=== PATIENT | male | born 1945 | race Caucasian/White ===

== ENCOUNTER 2021-04-25 11:08 | Inpatient (IN) | payer MEDICAID, MEDICARE ==
[~2021-04-25] VITALS: Ht 172.7 cm; Wt 81.7 kg
[2021-04-25 13:25] VITALS: BP 177/82
[2021-04-25] MEDS ORDERED: ACETAMINOPHEN TAB 650MG DOSE (2X325MG) PO PRN (14:15)
[2021-04-25] MEDS ORDERED: MOM 30ML SUSPENSION UDC PO PRN (14:15)
[2021-04-25] MEDS ORDERED: MAALOX 30 ML SUSP *UDC PO PRN (14:15)
[2021-04-25 14:56] LABS: BASO # 0.1 10^3/uL (0.0-0.2); BASO % 0.5 % (0.0-1.0); EOS # 0.1 10^3/uL (0.0-0.5); EOS % 0.6 % (0.0-3.0); HEMATOCRIT 40.5 % (42.0-52.0); LYMPH # 1.2 10^3/uL (1.5-5.0); MEAN CORPUSCULAR HEMOGLOBIN 29.5 pg (27.0-33.0); MEAN CORPUSCULAR HGB CONC 32.1 g/dl (32.0-36.5); MONO # 1.2 10^3/uL (0.0-0.8); NEUTROPHILS # 7.6 10^3/uL (1.5-8.5); NEUTROPHILS % 74.6 % (36.0-66.0); PLATELET COUNT, AUTOMATED 165 10^3/uL (150-450); WHITE BLOOD COUNT 10.2 10^3/uL (4.0-10.0)
[2021-04-25] MEDS ORDERED: METO50TA7 PO (14:58)
[2021-04-25] MEDS ORDERED: PANT40TA29 PO (14:58)
[2021-04-25] MEDS ORDERED: LOVA20TA2 PO (14:58)
[2021-04-25] MEDS ORDERED: DOXA1TAB40 PO (14:58)
[2021-04-25] MEDS ORDERED: CARB25TA9 PO (14:58)
[2021-04-25] MEDS ORDERED: ALBU8.5H INH (14:58)
[2021-04-25 15:13] LABS: HEMOGLOBIN A1c 6.2 %
[2021-04-25] MEDS ORDERED: METF500T13 PO (15:29)
[2021-04-25] MEDS ORDERED: CLOP75TA2 PO (15:29)
[2021-04-25] MEDS ORDERED: HOME MED LIST COMPLETE! XX SCH (15:35)
[2021-04-25 15:55] LABS: ALBUMIN 3.4 GM/DL (3.2-5.2); ALT/SGPT 26 U/L (12-78); BILIRUBIN,TOTAL 0.7 MG/DL (0.2-1.0); BLOOD UREA NITROGEN 15 MG/DL (7-18); CALCIUM LEVEL 8.9 MG/DL (8.8-10.2); CARBON DIOXIDE LEVEL 29 MEQ/L (21-32); CHLORIDE LEVEL 104 MEQ/L (98-107); CHOLESTEROL LEVEL 126 MG/DL (<200); CHOLESTEROL RISK RATIO 2.172 (<5); CREATININE FOR GFR 0.84 MG/DL (0.70-1.30); FREE T4 1.05 NG/DL (0.76-1.46); GLOMERULAR FILTRATION RATE > 60.0 (>42); GLUCOSE, FASTING 119 MG/DL (70-100); HDL CHOLESTEROL 58 MG/DL (>40); LDL CHOLESTEROL 55 MG/DL (<100); MAGNESIUM LEVEL 1.8 MG/DL (1.8-2.4); NON-HDL-C 68 MG/DL; POTASSIUM SERUM 3.8 MEQ/L (3.5-5.1); SODIUM LEVEL 139 MEQ/L (136-145); THYROID STIMULATING HORMONE 0.903 uIU/ML (0.358-3.740); TOTAL PROTEIN 6.2 GM/DL (6.4-8.2); TRIGLYCERIDES LEVEL 64 MG/DL (<150)
[2021-04-25] MEDS ORDERED: GLUCOSE 4GM CHEW TABLET PO PRN (16:10)
[2021-04-25] MEDS ORDERED: ALBUTEROL 90 MCG/ACT 8GM HFA INHALER INH PRN (16:10)
[2021-04-25] MEDS ORDERED: GLUCAGON INJ 1MG VIAL SC PRN (16:10)
[2021-04-25] MEDS ORDERED: DEXTROSE 50% 50 ML SYRINGE IV PRN (16:10)
[2021-04-25 16:17] VITALS: BP 151/69
[2021-04-25] MEDS ORDERED: LORazepam 2 MG/ML VIAL IV STA (16:27)
[2021-04-25] MEDS: D5W/0.9% SODIUM CHLORIDE 1,000 ML IV SCH (16:48)
[2021-04-25] MEDS ORDERED: PILL CUTTER 1 EACH XX PRN (17:00)
[2021-04-25] MEDS: PANTOPRAZOLE 40MG TAB (PROTONIX) PO SCH (17:30)
[2021-04-25] MEDS: CLOPIDOGREL 75 MG TAB PO SCH (17:30)
[2021-04-25] MEDS: HumaLOG INSULIN (NovoLOG) PER UNIT SC SCH ×2 (18:45→20:43)
[2021-04-25 20:00] VITALS: BP 145/66
[2021-04-25] MEDS: SINEMET 25-100 MG TAB PO SCH (20:35)
[2021-04-25] MEDS: METOPROLOL TART 50 MG TAB PO SCH (20:35)
[2021-04-25] MEDS: SIMVASTATIN 20 MG TAB PO SCH (20:36)
[2021-04-25] MEDS: HEPARIN SOD (PORCINE) 5000UNITS/ML 1ML VIAL/SYRINGE SC SCH (22:03)
[2021-04-26] VITALS: BP 146/68
[2021-04-26] MEDS: D5W/0.9% SODIUM CHLORIDE 1,000 ML IV SCH ×3 (03:31→23:00)
[2021-04-26 04:00] VITALS: BP 160/78
[2021-04-26] MEDS: HEPARIN SOD (PORCINE) 5000UNITS/ML 1ML VIAL/SYRINGE SC SCH ×3 (05:33→21:26)
[2021-04-26 07:18] VITALS: BP 170/79
[2021-04-26] MEDS ORDERED: ASPIRIN 325 MG TAB PO SCH (09:00)
[2021-04-26] MEDS: HumaLOG INSULIN (NovoLOG) PER UNIT SC SCH ×4 (09:13→21:36)
[2021-04-26] MEDS: CLOPIDOGREL 75 MG TAB PO SCH (09:14)
[2021-04-26] MEDS: PANTOPRAZOLE 40MG TAB (PROTONIX) PO SCH (09:14)
[2021-04-26] MEDS: SINEMET 25-100 MG TAB PO SCH ×3 (09:14→21:25)
[2021-04-26] MEDS: DOXAZOSIN MESYLATE 4 MG TAB PO SCH (09:15)
[2021-04-26] MEDS: METOPROLOL TART 50 MG TAB PO SCH ×2 (09:16→21:24)
[2021-04-26] MEDS: ASPIRIN 81 MG CHEW TABLET PO SCH (09:28)
[2021-04-26 09:47] LABS: BASO % 0.4 % (0.0-1.0); EOS # 0.2 10^3/uL (0.0-0.5); EOS % 2.9 % (0.0-3.0); HEMATOCRIT 44.1 % (42.0-52.0); HEMOGLOBIN 14.2 g/dl (13.5-17.5); LYMPH # 0.9 10^3/uL (1.5-5.0); LYMPH % 11.9 % (24.0-44.0); MEAN CORPUSCULAR HEMOGLOBIN 29.7 pg (27.0-33.0); MEAN CORPUSCULAR HGB CONC 32.2 g/dl (32.0-36.5); MEAN CORPUSCULAR VOLUME 92.3 fl (80.0-96.0); MONO # 0.7 10^3/uL (0.0-0.8); MONO % 9.7 % (2.0-8.0); NEUTROPHILS # 5.4 10^3/uL (1.5-8.5); NEUTROPHILS % 74.8 % (36.0-66.0); PLATELET COUNT, AUTOMATED 156 10^3/uL (150-450); RED BLOOD COUNT 4.78 10^6/uL (4.30-6.10); WHITE BLOOD COUNT 7.3 10^3/uL (4.0-10.0)
[2021-04-26 10:15] LABS: ALBUMIN 3.4 GM/DL (3.2-5.2); ALT/SGPT 19 U/L (12-78); BILIRUBIN,TOTAL 0.8 MG/DL (0.2-1.0); BLOOD UREA NITROGEN 11 MG/DL (7-18); CALCIUM LEVEL 8.9 MG/DL (8.8-10.2); CARBON DIOXIDE LEVEL 29 MEQ/L (21-32); CHLORIDE LEVEL 106 MEQ/L (98-107); CREATININE FOR GFR 0.86 MG/DL (0.70-1.30); GLOMERULAR FILTRATION RATE > 60.0 (>42); GLUCOSE, FASTING 156 MG/DL (70-100); MAGNESIUM LEVEL 1.6 MG/DL (1.8-2.4); SODIUM LEVEL 140 MEQ/L (136-145); TOTAL PROTEIN 6.8 GM/DL (6.4-8.2)
[2021-04-26 12:00] VITALS: BP 137/64
[2021-04-26 15:02] VITALS: BP 158/78
[2021-04-26 20:00] VITALS: BP 149/67
[2021-04-26] MEDS: SIMVASTATIN 20 MG TAB PO SCH (21:25)
[2021-04-27] VITALS: BP 140/68
[2021-04-27] MEDS ORDERED: **hydrALAZINE HCL** 25 MG TAB PO ONE (03:55)
[2021-04-27 04:00] VITALS: BP 180/82
[2021-04-27 04:27] VITALS: BP 180/82
[2021-04-27] MEDS: HEPARIN SOD (PORCINE) 5000UNITS/ML 1ML VIAL/SYRINGE SC SCH (05:11)
[2021-04-27 06:24] LABS: BASO % 0.5 % (0.0-1.0); EOS # 0.4 10^3/uL (0.0-0.5); EOS % 6.1 % (0.0-3.0); HEMATOCRIT 38.4 % (42.0-52.0); HEMOGLOBIN 12.4 g/dl (13.5-17.5); LYMPH # 0.9 10^3/uL (1.5-5.0); LYMPH % 14.9 % (24.0-44.0); MEAN CORPUSCULAR HEMOGLOBIN 29.6 pg (27.0-33.0); MEAN CORPUSCULAR HGB CONC 32.3 g/dl (32.0-36.5); MEAN CORPUSCULAR VOLUME 91.6 fl (80.0-96.0); MONO # 0.6 10^3/uL (0.0-0.8); MONO % 10.4 % (2.0-8.0); NEUTROPHILS # 4.1 10^3/uL (1.5-8.5); NEUTROPHILS % 67.8 % (36.0-66.0); PLATELET COUNT, AUTOMATED 140 10^3/uL (150-450); RED BLOOD COUNT 4.19 10^6/uL (4.30-6.10); WHITE BLOOD COUNT 6.1 10^3/uL (4.0-10.0)
[2021-04-27 06:51] LABS: BLOOD UREA NITROGEN 9 MG/DL (7-18); CALCIUM LEVEL 8.7 MG/DL (8.8-10.2); CARBON DIOXIDE LEVEL 29 MEQ/L (21-32); CHLORIDE LEVEL 107 MEQ/L (98-107); CREATININE FOR GFR 0.71 MG/DL (0.70-1.30); GLOMERULAR FILTRATION RATE > 60.0 (>42); GLUCOSE, FASTING 134 MG/DL (70-100); MAGNESIUM LEVEL 1.7 MG/DL (1.8-2.4); POTASSIUM SERUM 3.8 MEQ/L (3.5-5.1); SODIUM LEVEL 142 MEQ/L (136-145)
[2021-04-27 07:31] VITALS: BP 180/79
[2021-04-27] MEDS: HumaLOG INSULIN (NovoLOG) PER UNIT SC SCH (07:45)
[2021-04-27] MEDS: CLOPIDOGREL 75 MG TAB PO SCH (08:51)
[2021-04-27] MEDS: PANTOPRAZOLE 40MG TAB (PROTONIX) PO SCH (08:51)
[2021-04-27] MEDS: DOXAZOSIN MESYLATE 4 MG TAB PO SCH (08:52)
[2021-04-27] MEDS: ASPIRIN 81 MG CHEW TABLET PO SCH (08:52)
[2021-04-27] MEDS: SINEMET 25-100 MG TAB PO SCH (08:52)
[2021-04-27] MEDS: METOPROLOL TART 50 MG TAB PO SCH (08:52)
[2021-04-27] MEDS ORDERED: amLODIPine 5 MG TAB PO SCH (09:00)
[2021-04-27 10:02] VITALS: BP 167/70
[2021-04-27 11:31] VITALS: BP 154/68
[2021-04-27] MEDS ORDERED: AMLO1TAB24 PO (12:48)
[2021-04-27] MEDS ORDERED: ASPI81CH8 PO (12:48)
[2021-04-27] MEDS ORDERED: CLOP75TA2 PO (12:48)
[2021-04-27] MEDS ORDERED: CARB25TA9 PO (12:48)
[2021-04-27] MEDS ORDERED: LOVA20TA2 PO (12:48)
[2021-04-27] MEDS ORDERED: MAGN400T2 PO (12:48)
[2021-04-27] MEDS ORDERED: MAG SULF 1GM/100ML (MAG RUN) 1 GM in IV 1 EA IV SCH (13:00)
== END 2021-04-27 14:00 | disposition home health service (06) | DRG 71 ==
LOC: M PCU 13:37
PROVIDERS: ADMIT Family Medicine; ATTEND Family Medicine
DX: I67.2 Cerebral atherosclerosis (principal); I67.82 Cerebral ischemia; G45.9 Transient cerebral ischemic attack, unspecified; G31.83 Neurocognitive disorder with Lewy bodies; I25.10 Atherosclerotic heart disease of native coronary artery without angina pectoris; F02.80 Dementia in other diseases classified elsewhere, unspecified severity, without behavioral disturbance, psychotic disturbance, mood disturbance, and anxiety; J44.9 Chronic obstructive pulmonary disease, unspecified; I10 Essential (primary) hypertension; E11.9 Type 2 diabetes mellitus without complications; K21.9 Gastro-esophageal reflux disease without esophagitis; Z99.81 Dependence on supplemental oxygen; Z95.1 Presence of aortocoronary bypass graft; Z87.891 Personal history of nicotine dependence; Z88.0 Allergy status to penicillin; Z79.02 Long term (current) use of antithrombotics/antiplatelets; Z79.84 Long term (current) use of oral hypoglycemic drugs; Z79.899 Other long term (current) drug therapy